=== PATIENT | male | born 1980 | race African-American/Black ===

== ENCOUNTER 2019-11-08 14:29 | Emergency (ER) | payer SELFPAY ==
[~2019-11-08] VITALS: Ht 188 cm; Wt 140.0 kg
[2019-11-08 15:29] VITALS: BP 151/96
== END 2019-11-08 21:06 | disposition left against medical advice (07) ==
LOC: ER 14:29
DX: Z53.21 Procedure and treatment not carried out due to patient leaving prior to being seen by health care provider (principal)

== ENCOUNTER 2025-05-13 21:10 | Inpatient (IN) | payer OTHER, MEDICAID ==
[~2025-05-13] VITALS: Ht 188 cm; Wt 142.9 kg
[2025-05-13 21:10] VITALS: BP 122/72; PULSE 100; RESP 20; TEMP 36.4; TEMP 36.418
[~2025-05-13 21:10] MED LIST: HYDR25TA MT; LISI20TA31 PO
[2025-05-13] MEDS ORDERED: NALOXONE HCL 0.4MG/ML 1ML VIAL IV PRN (23:00)
[2025-05-13] MEDS ORDERED: ONDANSETRON HCL 4MG/2ML INJ IV PRN (23:00)
[2025-05-13] MEDS: SODIUM CHLORIDE 0.45% 1,000 ML IV SCH (23:00)
[2025-05-13] MEDS ORDERED: NALOXONE HCL 0.4MG/ML VIAL IV PRN (23:15)
[2025-05-13] MEDS ORDERED: DEXTROSE 50% WATER 50ML SYRINGE IV PRN (23:15)
[2025-05-14] MEDS: BLOOD SUGAR DIAGNOSTIC STRIP TEST SCH (06:39)
[2025-05-14] MEDS: INSULIN LISPRO 100 UNITS/ML SUBCUT SCH (06:40)
[2025-05-14 08:00] VITALS: BP 133/91; PULSE 110; RESP 20; TEMP 36.3; O2SAT 95
[2025-05-14] MEDS: HYDROCODONE/ACETAMINOPHEN 5/325MG TABLET PO PRN (08:34)
[2025-05-14] MEDS: AMLODIPINE 10MG TABLET PO SCH (08:34)
[2025-05-14] MEDS: HYDROCHLOROTHIAZIDE 25MG TABLET PO SCH (08:35)
[2025-05-14] MEDS: LISINOPRIL 20MG TABLET PO SCH (08:35)
[2025-05-14] MEDS: PANTOPRAZOLE SODIUM 40 MG/VIAL IV SCH (08:40)
[2025-05-14 10:49] LABS: BASOPHILS % 0.7 % (0.0-2.0); EOSINOPHILS % 0.7 % (0.0-5.0); HEMATOCRIT. 40.4 % (42.0-52.0); HEMOGLOBIN. 13.7 g/dL (14.0-18.0); LYMPHOCYTES % 10.0 % (20.0-50.0); MEAN PLATELET VOLUME 8.5 fl (7.4-10.4); MONOCYTES % 11.2 % (2.0-8.0); NEUTROPHILS % 77.4 % (40.0-76.0); PLATELET 392 x1000/uL (130-400); RED BLOOD CELL COUNT 4.54 mill/uL (4.7-6.1); RED CELL DISTRIBUTION WIDTH 13.7 % (11.6-14.6)
[2025-05-14 11:18] LABS: CREATININE 2.1 mg/dL (0.6-1.3); UREA NITROGEN BLOOD 55 mg/dL (9-23)
[2025-05-14 11:20] LABS: ASPARTATE AMINOTRANSFERASE 37 IU/L (<34); BILIRUBIN TOTAL 0.6 mg/dL (0.1-1.0); PROTEIN TOTAL 7.4 g/dL (6.0-8.3)
[2025-05-14] MEDS: METOPROLOL TARTRATE 50MG TABLET PO SCH (11:49)
[2025-05-14] MEDS: SODIUM CHLORIDE 0.9% 1,000 ML IV SCH (13:02)
[2025-05-14 21:00] VITALS: BP 124/86; PULSE 98; RESP 19; TEMP 37.2; O2SAT 98
[2025-05-14] MEDS: ENOXAPARIN 40MG/0.4ML SYR SUBCUT SCH (22:35)
[2025-05-15 07:43] LABS: BASOPHILS % 1.0 % (0.0-2.0); EOSINOPHILS % 1.7 % (0.0-5.0); HEMATOCRIT. 39.4 % (42.0-52.0); HEMOGLOBIN. 13.2 g/dL (14.0-18.0); LYMPHOCYTES % 13.5 % (20.0-50.0); MEAN PLATELET VOLUME 8.2 fl (7.4-10.4); MONOCYTES % 12.8 % (2.0-8.0); NEUTROPHILS % 71.0 % (40.0-76.0); PLATELET 395 x1000/uL (130-400); RED BLOOD CELL COUNT 4.37 mill/uL (4.7-6.1); RED CELL DISTRIBUTION WIDTH 13.9 % (11.6-14.6)
[2025-05-15 08:00] VITALS: BP 129/79; PULSE 72; RESP 20; TEMP 36.8; O2SAT 99
[2025-05-15 08:06] LABS: CREATININE 2.0 mg/dL (0.6-1.3)
[2025-05-15 08:07] LABS: PROTEIN TOTAL 7.3 g/dL (6.0-8.3); UREA NITROGEN BLOOD 52 mg/dL (9-23)
[2025-05-15 08:08] LABS: ASPARTATE AMINOTRANSFERASE 30 IU/L (<34); FOLIC ACID (FOLATE) SERUM 9.11 ng/mL (>5.38)
[2025-05-15 08:09] LABS: BILIRUBIN TOTAL 0.6 mg/dL (0.1-1.0)
[2025-05-15 08:11] LABS: VITAMIN B12 SERUM 778 pg/mL (211-911)
[2025-05-15] MEDS: HYDROCODONE/ACETAMINOPHEN 10/325MG TABLET PO PRN (11:22)
[2025-05-15 14:25] LABS: CLARITY URINE CLEAR (CLEAR); COLOR URINE YELLOW (YELLOW); GLUCOSE URINE NEGATIVE (NEGATIVE); KETONES URINE NEGATIVE (NEGATIVE); LEUKOCYTE ESTERASE URINE NEGATIVE (NEGATIVE); NITRITE URINE NEGATIVE (NEGATIVE); OCCULT BLOOD URINE TRACE (NEGATIVE); PH URINE 5.5 (4.5-8.0); PROTEIN URINE 2+ (NEGATIVE); SPECIFIC GRAVITY URINE 1.014 (1.005-1.030); UROBILINOGEN URINE 0.2 E.U./dL (0.2-1.0)
[2025-05-15 15:35] LABS: URIC ACID CRYSTALS URINE 2+ /lpf
[2025-05-15 15:36] LABS: SQUAMOUS EPITHELIAL CELL URINE NONE SEEN /lpf (RARE/1+); WBC URINE NONE SEEN /hpf (0-2)
[2025-05-15 15:37] LABS: BACTERIA URINE NONE SEEN; RBC URINE NONE SEEN /hpf (0-2)
[2025-05-15 20:00] VITALS: BP 136/93; PULSE 102; RESP 17; TEMP 37.1; O2SAT 100
[2025-05-16 07:09] LABS: CREATININE 1.6 mg/dL (0.6-1.3); UREA NITROGEN BLOOD 40.0 mg/dL (9-23)
[2025-05-16 08:00] VITALS: BP 130/82; PULSE 98; RESP 20; TEMP 36.4; O2SAT 98
[2025-05-16] MEDS ORDERED: ONDANSETRON HCL 4MG TABLET PO PRN (09:45)
[2025-05-16 20:00] VITALS: BP 162/99; PULSE 108; RESP 20; TEMP 37.1; O2SAT 98
[2025-05-16] MEDS: CLONIDINE 0.1MG TABLET PO PRN (21:02)
[2025-05-17] VITALS (9 sets, daily range): BP systolic 115–167; BP diastolic 64–96; PULSE 92–93; RESP 20; TEMP 36.3–36.7; O2SAT 98–100
[2025-05-17] MEDS: PANTOPRAZOLE 40MG DR TABLET PO SCH (06:49)
[2025-05-17 07:38] LABS: CREATININE 1.8 mg/dL (0.6-1.3); UREA NITROGEN BLOOD 37.0 mg/dL (9-23)
[2025-05-17 07:43] LABS: T4 FREE 1.65 ng/dL (0.89-1.76)
[2025-05-17] MEDS: SODIUM ZIRCONIUM CYCLOSILICATE 10GM/PACKET PO SCH (12:09)
[2025-05-17] MEDS: ENOXAPARIN 40MG/0.4ML SYR SUBCUT SCH (13:32)
[2025-05-17] MEDS: METOPROLOL TARTRATE 50MG TABLET PO SCH (14:31)
[2025-05-18] MEDS: ERGOCALCIFEROL 50000UNITS CAPSULE PO SCH (09:12)
[2025-05-18 09:30] VITALS: BP 136/86; PULSE 101
[2025-05-18 09:35] VITALS: BP 136/97; PULSE 110
[2025-05-18 09:45] VITALS: BP 168/108; PULSE 117
[2025-05-18 10:14] VITALS: BP 156/91; PULSE 97; RESP 20; TEMP 36.2; O2SAT 98
[2025-05-18 10:15] VITALS: BP 138/88; PULSE 99
[2025-05-18 20:00] VITALS: BP 132/92; PULSE 101; RESP 20; TEMP 36.5; O2SAT 98
[2025-05-19 08:00] VITALS: BP 133/92; PULSE 99; RESP 19; TEMP 36.8; O2SAT 99
[2025-05-19 20:00] VITALS: BP 125/83; PULSE 94; RESP 18; TEMP 36.8; O2SAT 99
[2025-05-20 08:00] VITALS: BP 140/99; PULSE 98; RESP 19; TEMP 36.7; O2SAT 98
[2025-05-20 08:08] LABS: BASOPHILS % 1.0 % (0.0-2.0); EOSINOPHILS % 2.0 % (0.0-5.0); HEMATOCRIT. 38.5 % (42.0-52.0); HEMOGLOBIN. 13.2 g/dL (14.0-18.0); LYMPHOCYTES % 16.1 % (20.0-50.0); MEAN PLATELET VOLUME 8.6 fl (7.4-10.4); MONOCYTES % 11.5 % (2.0-8.0); NEUTROPHILS % 69.4 % (40.0-76.0); PLATELET 466 x1000/uL (130-400); RED BLOOD CELL COUNT 4.39 mill/uL (4.7-6.1); RED CELL DISTRIBUTION WIDTH 13.5 % (11.6-14.6)
[2025-05-20 08:24] LABS: CREATININE 1.7 mg/dL (0.6-1.3); UREA NITROGEN BLOOD 32 mg/dL (9-23)
[2025-05-20 08:26] LABS: ASPARTATE AMINOTRANSFERASE 31 IU/L (<34); BILIRUBIN TOTAL 0.5 mg/dL (0.1-1.0); PROTEIN TOTAL 7.1 g/dL (6.0-8.3)
[2025-05-20 13:30] VITALS: BP 118/78; PULSE 109
[2025-05-20 14:00] VITALS: BP 138/87; PULSE 110
[2025-05-20 20:00] VITALS: BP 137/92; PULSE 102; RESP 18; TEMP 37.6; O2SAT 95
[2025-05-21 08:00] VITALS: BP 123/88; PULSE 92; RESP 20; TEMP 36.3; O2SAT 100
[2025-05-21 20:00] VITALS: BP 139/93; PULSE 96; RESP 16; TEMP 36.9; O2SAT 97
[2025-05-21] MEDS: HYDROCODONE/ACETAMINOPHEN 10/325MG TABLET PO NR (23:02)
[2025-05-22] MEDS: FAMOTIDINE 20MG TABLET PO SCH (06:12)
[2025-05-22 08:00] VITALS: BP 145/94; PULSE 93; RESP 19; TEMP 36.8; O2SAT 98
[2025-05-22] MEDS: ACETAMINOPHEN 325MG TABLET PO PRN (10:14)
[2025-05-22] MEDS ORDERED: NALOXONE HCL 0.4MG/ML VIAL IV PRN (19:45)
[2025-05-22 20:00] VITALS: BP 120/85; PULSE 94; RESP 18; TEMP 36.5; O2SAT 95
[2025-05-23 08:00] VITALS: BP 136/73; PULSE 100; RESP 20; TEMP 36.6; O2SAT 98
[2025-05-23] MEDS: HYDROCODONE/ACETAMINOPHEN 10/325MG TABLET PO PRN (08:49)
[2025-05-23 20:00] VITALS: BP 123/66; PULSE 82; RESP 20; TEMP 36.2; O2SAT 97
[2025-05-24 08:00] VITALS: BP 131/74; PULSE 80; RESP 19; TEMP 36.8; O2SAT 98
[2025-05-24 16:45] LABS: BASOPHILS % 1.2 % (0.0-2.0); EOSINOPHILS % 4.1 % (0.0-5.0); HEMATOCRIT. 37.2 % (42.0-52.0); HEMOGLOBIN. 12.6 g/dL (14.0-18.0); LYMPHOCYTES % 16.6 % (20.0-50.0); MEAN PLATELET VOLUME 8.4 fl (7.4-10.4); MONOCYTES % 9.7 % (2.0-8.0); NEUTROPHILS % 68.4 % (40.0-76.0); PLATELET 432 x1000/uL (130-400); RED BLOOD CELL COUNT 4.16 mill/uL (4.7-6.1); RED CELL DISTRIBUTION WIDTH 13.3 % (11.6-14.6)
[2025-05-24 16:53] LABS: CREATININE 1.9 mg/dL (0.6-1.3); UREA NITROGEN BLOOD 26.0 mg/dL (9-23)
[2025-05-24 20:00] VITALS: BP 115/75; PULSE 75; RESP 19; TEMP 36.4; O2SAT 96
[2025-05-25 08:00] VITALS: BP 128/90; PULSE 85; RESP 18; TEMP 36.4; O2SAT 100
[2025-05-25 09:10] LABS: BASOPHILS % 0.4 % (0.0-2.0); EOSINOPHILS % 7.3 % (0.0-5.0); HEMATOCRIT. 38.1 % (42.0-52.0); HEMOGLOBIN. 12.8 g/dL (14.0-18.0); LYMPHOCYTES % 18.6 % (20.0-50.0); MEAN PLATELET VOLUME 8.3 fl (7.4-10.4); MONOCYTES % 9.8 % (2.0-8.0); NEUTROPHILS % 63.9 % (40.0-76.0); PLATELET 450 x1000/uL (130-400); RED BLOOD CELL COUNT 4.33 mill/uL (4.7-6.1); RED CELL DISTRIBUTION WIDTH 13.3 % (11.6-14.6)
[2025-05-25 09:25] LABS: CREATININE 1.7 mg/dL (0.6-1.3); UREA NITROGEN BLOOD 26.0 mg/dL (9-23)
[2025-05-25] MEDS ORDERED: ACETAMINOPHEN 325MG TABLET PO PRN (16:15)
[2025-05-25 20:00] VITALS: BP 122/88; PULSE 82; RESP 17; TEMP 36.3; O2SAT 100
[2025-05-26 08:00] VITALS: BP 121/87; PULSE 69; RESP 20; TEMP 36.2; O2SAT 100
[2025-05-26 20:00] VITALS: BP 115/79; PULSE 92; RESP 18; TEMP 36.6; O2SAT 97
[2025-05-27 07:29] LABS: CREATININE 1.6 mg/dL (0.6-1.3); UREA NITROGEN BLOOD 18.0 mg/dL (9-23)
[2025-05-27 08:00] VITALS: BP 124/85; PULSE 83; RESP 18; TEMP 36.7; O2SAT 99
[2025-05-27 20:00] VITALS: BP 115/80; PULSE 74; RESP 18; TEMP 36.4; O2SAT 96
[2025-05-28 08:00] VITALS: BP 157/89; PULSE 104; RESP 20; TEMP 36.6; O2SAT 100
[2025-05-28 20:00] VITALS: BP 129/85; PULSE 80; RESP 18; TEMP 36.7; O2SAT 96
[2025-05-29 06:36] LABS: CREATININE 1.7 mg/dL (0.6-1.3); UREA NITROGEN BLOOD 17.0 mg/dL (9-23)
[2025-05-29 08:00] VITALS: PULSE 81; RESP 18; TEMP 36.1; O2SAT 97
[2025-05-29 20:00] VITALS: BP 107/64; PULSE 77; RESP 18; TEMP 36.7; O2SAT 95
[2025-05-29] MEDS: ENOXAPARIN 40MG/0.4ML SYR SUBCUT SCH (22:01)
[2025-05-30 08:00] VITALS: BP 130/93; PULSE 82; RESP 20; TEMP 36.4; O2SAT 98
[2025-05-30 20:00] VITALS: BP 126/88; PULSE 82; RESP 18; TEMP 36.5; O2SAT 96
[2025-05-31 08:00] VITALS: BP 119/78; PULSE 85; RESP 18; TEMP 36.4; O2SAT 98
[2025-05-31] MEDS ORDERED: AMLO10TA80 MT (10:41)
[2025-05-31] MEDS ORDERED: HYDR50TA40 MT (10:41)
[2025-05-31 11:02] VITALS: BP 119/78; PULSE 85; TEMP 97.5; O2SAT 98
== END 2025-05-31 13:45 | disposition home health service (06) | DRG 862 ==
PROVIDERS: ADMIT Physical Medicine & Rehabilitation Spinal Cord Injury Medicine; ATTEND Internal Medicine
DX: S76.111D Strain of right quadriceps muscle, fascia and tendon, subsequent encounter (principal); E87.20 Acidosis, unspecified; N17.9 Acute kidney failure, unspecified; M62.82 Rhabdomyolysis; E66.01 Morbid (severe) obesity due to excess calories; E87.5 Hyperkalemia; I12.9 Hypertensive chronic kidney disease with stage 1 through stage 4 chronic kidney disease, or unspecified chronic kidney disease; E55.9 Vitamin D deficiency, unspecified; N18.31 Chronic kidney disease, stage 3a; E04.2 Nontoxic multinodular goiter; R00.0 Tachycardia, unspecified; R53.81 Other malaise; E11.22 Type 2 diabetes mellitus with diabetic chronic kidney disease; E11.65 Type 2 diabetes mellitus with hyperglycemia; E05.90 Thyrotoxicosis, unspecified without thyrotoxic crisis or storm; S76.112D Strain of left quadriceps muscle, fascia and tendon, subsequent encounter; S83.511D Sprain of anterior cruciate ligament of right knee, subsequent encounter; S90.32XD Contusion of left foot, subsequent encounter; Z68.41 Body mass index [BMI] 40.0-44.9, adult; Z87.891 Personal history of nicotine dependence; Z80.0 Family history of malignant neoplasm of digestive organs; Z91.81 History of falling; Z79.899 Other long term (current) drug therapy
CPT/HCPCS: 36415; 76536; 76770; 80048; 80053; 81003; 82306; 82550; 82607; 82728; 82746; 82962; 83036; 83520; 83540; 83550; 84134; 84439; 84443; 84480; 85025; 97110; 97112; 97116; 97162; 97165; 97530; 97535; A4606; A6449; J1650; J1815; J2470; J7030